=== PATIENT | male | born 1980 | race Caucasian/White ===

== ENCOUNTER 2016-07-28 13:44 | Emergency (ER) | payer SELFPAY ==
[~2016-07-28] VITALS: Ht 185.4 cm; Wt 54.5 kg
[~2016-07-28 13:44] MED LIST: BACT800T5 PO; CLIN1CAP5 PO
[2016-07-28 13:49] VITALS: BP 123/65; PULSE 57; RESP 19; TEMP 97.7; O2SAT 99
[2016-07-28] MEDS ORDERED: ONDANSETRON ODT 4 MG TAB PO ONE (14:15)
--- NOTE | 2016-07-28 14:16 | PD ---
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 He states he last used 2 days ago. He states he was at the detox facility and was unable keep anything down so was sent to the emergency department further treatment and evaluation. Patient states he's had approximate 6 episodes of vomiting today. Denies any blood in the vomit and reports nonbilious. Denies any diarrhea, chest pain, shortness breath, abdominal pain, or fevers. Patient states she does have generalized pain all over. PFSH Past Medical History Anxiety: Yes Depression: Yes Diminished Hearing: No Social History Alcohol Use: Yes (states occ) Tobacco Use: Yes (1 ppd) Substance Use: Yes (IV methadone) Allergies-Medications (Allergen,Severity, Reaction): Coded Allergies: Doxepin (Verified Allergy, Severe, ANAPHALAXIS, 11/25/14) Reported Meds & Prescriptions Reported Meds & Active Scripts Active Phenergan Supp (Promethazine HCl) 12.5 Mg Supp 12.5 Mg RECTAL Q6H PRN Zofran Odt (Ondansetron Odt) 4 Mg Tab 4 Mg SL Q6HR PRN Review of Systems Except as stated in HPI: all other systems reviewed are Neg Physical Exam Narrative GENERAL: Well-developed, under nourished, in no acute distress, and non-ill appearing. Patient has a bucket of emesis at the side of his bed with no blood noted. SKIN: Focused skin assessment warm and dry. HEAD: Atraumatic. Normocephalic. EYES: Pupils equal and round. EOMI. No scleral icterus. No injection or drainage. ENT: No nasal bleeding or discharge. Mucous membranes pink and moist. NECK: Trachea midline. No JVD. Supple. No nuclear rigidity. CARDIOVASCULAR: Regular rate and rhythm. No murmur appreciated. RESPIRATORY: No accessory muscle use. No respiratory distress. Clear to auscultation. Breath sounds equal bilaterally. GASTROINTESTINAL: Abdomen soft, non-tender, nondistended. Hepatic and splenic margins not palpable. Normal bowel sounds 4. No pulsatile mass. MUSCULOSKELETAL: No obvious deformities. No clubbing. No cyanosis. No edema. Full range of motion. NEUROLOGICAL: Awake and alert. No obvious cranial nerve deficits. Motor grossly within normal limits. Normal speech. PSYCHIATRIC: Appropriate mood and affect; insight and judgment normal. Data Data Last Documented VS Vital Signs Date Time Temp Pulse Resp B/P Pulse Ox O2 Delivery O2 Flow Rate FiO2 07/28/16 16:25 97 07/28/16 13:49 97.7 57 19 123/65 Orders Ondansetron Odt (Zofran Odt) (07/28/16 14:15) Vascular Access Team Consult/P PRN (07/28/16 15:16) Complete Blood Count With Diff (07/28/16 15:15) Comprehensive Metabolic Panel (07/28/16 15:15) Lipase (07/28/16 15:15) Iv Access Insert/Monitor (07/28/16 15:15) Ecg Monitoring (07/28/16 15:15) Oximetry (07/28/16 15:15) Sodium Chlor 0.9% 1000 Ml Inj (Ns 1000 M (07/28/16 15:15) Sodium Chloride 0.9% Flush (Ns Flush) (07/28/16 15:15) Chest, Single Ap (07/28/16 15:15) Pantoprazole Inj (Protonix Inj) (07/28/16 15:15) Metoclopramide Inj (Reglan Inj) (07/28/16 15:15) Vascular Poc Ultrasound (07/28/16 ) Labs Laboratory Tests Test 07/28/16 07/28/16 15:43 17:11 White Blood Count 9.5 TH/MM3 Red Blood Count 4.28 MIL/MM3 Hemoglobin 13.0 GM/DL Hematocrit 38.3 % Mean Corpuscular Volume 89.5 FL Mean Corpuscular Hemoglobin 30.5 PG Mean Corpuscular Hemoglobin 34.1 % Concent Red Cell Distribution Width 13.3 % Platelet Count 260 TH/MM3 Mean Platelet Volume 7.9 FL Neutrophils (%) (Auto) 88.0 % Lymphocytes (%) (Auto) 8.8 % Monocytes (%) (Auto) 3.1 % Eosinophils (%) (Auto) 0.0 % Basophils (%) (Auto) 0.1 % Neutrophils # (Auto) 8.3 TH/MM3 Lymphocytes # (Auto) 0.8 TH/MM3 Monocytes # (Auto) 0.3 TH/MM3 Eosinophils # (Auto) 0.0 TH/MM3 Basophils # (Auto) 0.0 TH/MM3 CBC Comment DIFF FINAL Differential Comment Sodium Level 138 MEQ/L Potassium Level 4.4 MEQ/L Chloride Level 106 MEQ/L Carbon Dioxide Level 22.6 MEQ/L Anion Gap 9 MEQ/L Blood Urea Nitrogen 14 MG/DL Creatinine 0.80 MG/DL Estimat Glomerular Filtration 109 ML/MIN Rate Random Glucose 105 MG/DL Calcium Level 9.3 MG/DL Total Bilirubin 0.4 MG/DL Aspartate Amino Transf 31 U/L (AST/SGOT) Alanine Aminotransferase 39 U/L (ALT/SGPT) Alkaline Phosphatase 64 U/L Total Protein 8.0 GM/DL Albumin 3.5 GM/DL Lipase 71 U/L [facility] Medical Decision Making Medical Screen Exam Complete: Yes Emergency Medical Condition: Yes Interpretation(s) Chest x-ray read by radiologist shows: Negative for acute process. Differential Diagnosis Methadone withdrawal, nausea, vomiting, gastritis, electrolyte abnormality, pancreatitis, other Narrative Course 1630 patient reassessed in bed in no acute distress. Reports feeling better. We'll by mouth challenge patient, await CMP, and likely discharge home with Zofran prescription. 1940 patient feeling better and wanting to go back to detox center. I spoke with lab who reports the recollected CMP should be done within 15 minutes. Patient looks great, non-ill appearing. The patient is tolerating fluids and is well hydrated. I suspect opioid withdrawal versus possible gastritis by history and exam. The abdominal exam is unremarkable without defined focal tenderness. The patient appeared comfortable, well hydrated and the abdominal exam was unremarkable and minimal to nontender to me. Laboratory and radiographic evaluation revealed no significant abnormality. There was no evidence of an acute, surgical abdomen at this time.There are normal active bowel sounds without any masses, distension, or significant tenderness. There was no clinical evidence to support cholecystitis/cholelithiasis, pancreatitis, perforation of gastric ulcer, colitis, diverticulitis, peritonitis, obstruction , volvulus, early appendicitis, or hernial incarceration or strangulation at this time. There was no evidence to support vascular pathology such as AAA, mesenteric ischemia. There was also no clinical evidence by history, exam or risk factors to suggest atypical presentation of cardiac disease such as ACS, AMI or atypical angina. No evidence to suggest genitourinary etiology as well. During the course of the ED visit, the patient noted improvement. Clinical picture was discussed with the patient, as well as plan of care. The patient was instructed to follow up with their physician. Abdominal pain warnings were discussed with the patient. The patient is to return if worsens, pain worsens or changes, develop fever, inability to tolerate fluids with or without vomiting , increased vomiting, blood in vomit, unable to establish follow up or as needed. The patient agrees with plan. The patient was tolerating fluids at time of discharge. Patient in no obvious distress upon re-evaluation. All pertinent laboratory/ Radiology result(s) discussed with patient. Patient was asked if they wanted to speak to my attending, which the patient did not wish to do at this time. Any questions/concerns in reference to patient diagnosis/condition discussed and clarified prior to patient's discharge. Reinforced sheer importance of close follow up with patient's primary physician or primary care clinic. Instructed patient to return to ED immediately, if symptoms return/worsen. Pt showed understanding of above instructions. Further instructions and recommendations were detailed in discharge paperwork. Pt ambulated without difficulty out of ED at discharge and was taken back to the detox center. Diagnosis Primary Impression: Nausea & vomiting Qualified Code: R11.2 - Non-intractable vomiting with nausea, unspecified vomiting type Patient Instructions: Acute Nausea and Vomiting (ED), General Instructions Additional Instructions: Follow-up with your primary care physician in 2-3 days for reevaluation. Take all medication as prescribed. Drink plenty of non-caffeinated and nonalcoholic fluids. Return to the emergency department if symptoms get worse. Med/Other Pt SpecificInfo: Prescription(s) given Scripts Promethazine Supp (Phenergan Supp)12.5 Mg Supp12.5 Mg RECTAL Q6H PRN (NAUSEA OR VOMITING) #7 SUPP Ref 0 Prov:Macho Sanchez MD 07/28/16 Ondansetron Odt (Zofran Odt)4 Mg Tab4 Mg SL Q6HR PRN (Nausea/Vomiting) #12 TAB Ref 0 Prov:Macho Sanchez MD 07/28/16 Disposition: 01 DISCHARGE HOME (back to detox facility) Condition: Stable Josse Urban July 28, 2016 14:16
[2016-07-28] MEDS ORDERED: PANTOPRAZOLE SODIUM 40 MG VIAL IVP ONE (15:15)
[2016-07-28] MEDS ORDERED: METOCLOPRAMIDE HCL 10 MG/2 ML VIAL IV PUSH ONE (15:15)
[2016-07-28] MEDS ORDERED: SODIUM CHLOR 0.9% 1000 ML INJ 1,000 ML IV SCH (15:15)
[2016-07-28] MEDS ORDERED: SODIUM CHLORIDE 0.9% FLUSH 10 ML FLUSH IV FLUSH PRN (15:15)
--- NOTE | 2016-07-28 15:45 | RADRPT ---
EXAM DATE/TIME: 07/28/2016 15:32 [facility] COMPARISON: No previous studies available for comparison. INDICATIONS : Shortness of breath. MEDICAL HISTORY : None. SURGICAL HISTORY : None. ENCOUNTER: Initial ACUITY: 1 day PAIN SCORE: 0/10 LOCATION: Bilateral chest FINDINGS: A single view of the chest demonstrates the lungs to be symmetrically aerated without evidence of mas s, infiltrate or effusion. Nipple shadow is present in the left base. The cardiomediastinal contour s are unremarkable. Osseous structures are intact. CONCLUSION: Negative for acute process. Jermain Sheets MD FACR on July 28, 2016 at 15:42 Board Certified Radiologist. This report was verified electronically.
[2016-07-28 15:50] LABS: AUTOMATED NEUTROPHIL # 8.3 TH/MM3 (1.8-7.7); BASOPHIL % 0.1 % (0.0-2.0); HEMATOCRIT 38.3 % (39.0-51.0); HEMO FLAGS DIFF FINAL; LYMPH % 8.8 % (9.0-44.0); LYMPHOCYTE # 0.8 TH/MM3 (1.0-4.8); MEAN CELL VOLUME 89.5 FL (80.0-100.0); MEAN CORPUSCULAR HEMOGLOBIN 30.5 PG (27.0-34.0); MEAN CORPUSCULAR HGB CONC 34.1 % (32.0-36.0); MONO % 3.1 % (0.0-8.0); PLATELET COUNT 260 TH/MM3 (150-450); RED BLOOD COUNT 4.28 MIL/MM3 (4.50-5.90); RED CELL DISTRIBUTION WIDTH 13.3 % (11.6-17.2); WHITE BLOOD COUNT 9.5 TH/MM3 (4.0-11.0)
[2016-07-28 16:25] VITALS: O2SAT 97
[2016-07-28] MEDS ORDERED: ZOFR4TAB3 SL (17:46)
[2016-07-28] MEDS ORDERED: PROM2SUP RECTAL (17:46)
[2016-07-28 17:50] LABS: ALT (GPT) 39 U/L (12-78); ANION GAP 9 MEQ/L (5-15); AST (GOT) 31 U/L (15-37); BICARBONATE 22.6 MEQ/L (21.0-32.0); BLOOD UREA NITROGEN 14 MG/DL (7-18); CHLORIDE 106 MEQ/L (98-107); GLOMERULAR FILTRATION RATE 109 ML/MIN (>89); POTASSIUM 4.4 MEQ/L (3.5-5.1); SODIUM (NA) 138 MEQ/L (136-145)
[2016-07-28 17:52] LABS: ALKALINE PHOSPHATASE 64 U/L (45-117); TOTAL BILIRUBIN ADULT 0.4 MG/DL (0.2-1.0)
== END 2016-07-28 18:15 | disposition home or self-care (01) ==
LOC: NEPE 13:44
DX: R11.2 Nausea with vomiting, unspecified (principal); F11.23 Opioid dependence with withdrawal; F41.8 Other specified anxiety disorders
CPT/HCPCS: 71010; 80053; 83690; 85025; 96374; 96375; 99284; C9113; J2765; J7030

== ENCOUNTER 2017-03-18 15:09 | Emergency (ER) | payer SELFPAY ==
[~2017-03-18] VITALS: Ht 185.4 cm; Wt 59.1 kg
[~2017-03-18 15:09] MED LIST changes: -BACT800T5 PO; -CLIN1CAP5 PO; +PROM2SUP RECTAL; +ZOFR4TAB3 SL
[2017-03-18 15:21] VITALS: BP 104/62; PULSE 98; RESP 13; TEMP 99.1; O2SAT 94; O2SAT 96
[2017-03-18 16:03] LABS: BILIRUBIN, URINE NEG (NEG); BLOOD, URINE NEG (NEG); GLUCOSE,URINE NEG (NEG); KETONE, URINE TRACE mg/dL (NEG); NITRITE,URINE NEG (NEG); URINE COLOR YELLOW (YELLW/STRAW); URINE LEUKOCYTE ESTERASE NEG (NEG)
[2017-03-18] MEDS ORDERED: BUPR8SUB SL (16:53)
[2017-03-18] MEDS ORDERED: ONDANSETRON HCL 4 MG/2 ML VIAL IV PUSH ONE (17:30)
[2017-03-18] MEDS ORDERED: KETOROLAC TROMETHAMINE 30 MG/ML (IVP) VIAL IV PUSH ONE (17:30)
[2017-03-18] MEDS ORDERED: SODIUM CHLOR 0.9% 1000 ML INJ 1,000 ML IV ONE (17:30)
--- NOTE | 2017-03-18 17:54 | RADRPT ---
EXAM DATE/TIME: 03/18/2017 17:40 [facility] COMPARISON: No previous studies available for comparison. INDICATIONS : Dysuria, bilateral flank pain. ORAL CONTRAST: No oral contrast ingested. RADIATION DOSE: 4.53 CTDIvol (mGy) MEDICAL HISTORY : None SURGICAL HISTORY : None. ENCOUNTER: Initial ACUITY: 1 day PAIN SCALE: 10/10 LOCATION: Bilateral flank TECHNIQUE: Volumetric scanning of the abdomen and pelvis was performed. Using automated exposure control and adjustment of the mA and/or kV according to patient size, radiation dose was kept as low as reasonably achievable to obtain optimal diagnostic quality images. DICOM format image data is av ailable electronically for review and comparison. FINDINGS: CT Abdomen: The liver, spleen, pancreas, right kidney, adrenals are unremarkable. Approximate [address] one is present in the left kidney. There is no evidence for any stone in the ureters on either side a nd no significant hydronephrosis is identified.There is no evidence for any appreciable pathological adenopathy, free fluid, or bowel obstruction. Focal consolidation and inflammatory nodularity is lakisha ntified in the left lower lobe. CT pelvis: There is no evidence for mass, abscess formation, or any significant adenopathy within the pelvis. There is a tiny 4-5 mm bone island in the right ischium. There is chronic spondylolysis bila terally L5. CONCLUSION: 1. Left lower lobe pneumonia. 2. Nonobstructing left renal stone. 3. Chronic spondylolysis bilaterally L5. KBrenna Cid MD on March 18, 2017 at 17:48 Board Certified Radiologist. This report was verified electronically.
[2017-03-18 17:57] LABS: ALBUMIN 4.2 GM/DL (3.4-5.0); ALT (GPT) 43 U/L (12-78); AST (GOT) 30 U/L (15-37); BICARBONATE 23.3 MEQ/L (21.0-32.0); BLOOD UREA NITROGEN 12 MG/DL (7-18); CALCIUM 8.8 MG/DL (8.5-10.1); CHLORIDE 102 MEQ/L (98-107); CREATININE 0.87 MG/DL (0.60-1.30); GLOMERULAR FILTRATION RATE 98 ML/MIN (>89); GLUCOSE,RANDOM 86 MG/DL (74-106); SODIUM (NA) 134 MEQ/L (136-145)
[2017-03-18 18:00] LABS: ALKALINE PHOSPHATASE 67 U/L (45-117); TOTAL BILIRUBIN ADULT 0.5 MG/DL (0.2-1.0); TOTAL PROTEIN 8.6 GM/DL (6.4-8.2)
[2017-03-18] MEDS ORDERED: KETOROLAC TROMETHAMINE 60 MG/2 ML (IM) VIAL IM ONE (18:00)
[2017-03-18] MEDS ORDERED: ONDANSETRON ODT 4 MG TAB PO ONE (18:00)
[2017-03-18 18:24] LABS: AUTOMATED NEUTROPHIL # 7.5 TH/MM3 (1.8-7.7); BASOPHIL % 0.2 % (0.0-2.0); HEMATOCRIT 40.3 % (39.0-51.0); HEMOGLOBIN 14.7 GM/DL (13.0-17.0); LYMPH % 14.2 % (9.0-44.0); LYMPHOCYTE # 1.4 TH/MM3 (1.0-4.8); MEAN CELL VOLUME 86.6 FL (80.0-100.0); MEAN CORPUSCULAR HEMOGLOBIN 31.5 PG (27.0-34.0); MEAN PLATELET VOLUME 8.1 FL (7.0-11.0); MONO % 8.5 % (0.0-8.0); MONOCYTE # 0.8 TH/MM3 (0-0.9); NEUT % 77.1 % (16.0-70.0); PLATELET COUNT 222 TH/MM3 (150-450); RED BLOOD COUNT 4.65 MIL/MM3 (4.50-5.90); RED CELL DISTRIBUTION WIDTH 13.9 % (11.6-17.2); WHITE BLOOD COUNT 9.8 TH/MM3 (4.0-11.0)
[2017-03-18 18:26] LABS: MEAN CORPUSCULAR HGB CONC 36.4 % (32.0-36.0)
--- NOTE | 2017-03-18 18:50 | RADRPT ---
EXAM DATE/TIME: 03/18/2017 18:40 [facility] COMPARISON: No previous studies available for comparison. INDICATIONS : Fever. Possible infection. MEDICAL HISTORY : None. SURGICAL HISTORY : None. ENCOUNTER: Initial ACUITY: 1 day PAIN SCORE: 0/10 LOCATION: Bilateral chest FINDINGS: PA and lateral views of the chest demonstrate the lungs to be symmetrically aerated without evidence of mass, infiltrate or effusion. The cardiomediastinal contours are unremarkable. Osseous structure s are intact. CONCLUSION: No acute disease. Thomas Delong MD on March 18, 2017 at 18:48 Board Certified Radiologist. This report was verified electronically.
[2017-03-18] MEDS ORDERED: ZITHTAB PO (19:05)
--- NOTE | 2017-03-18 19:05 | PD ---
HPI Chief Complaint: Flank/Kidney Pain Time Seen by Provider: 17:05 Travel History International Travel<30 days: No Contact w/Intl Traveler<30days: No Traveled to known affect area: No History of Present Illness HPI Patient is a 37 year old male who comes in complaining of flank pain, fevers, cough, nausea. He says he has had issues with urination for several months, and is concerned he has a urinary infection. The flank pain and fevers started a few days ago. He says his fever has been as high as 103 and he has been taking Tylenol and Ibuprofen to control the fever/pain. He denies any penile discharge. 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 He denies any chest pain or skin infections. [facility] Past Medical History Anxiety: Yes Depression: Yes Diminished Hearing: No Tetanus Vaccination: Unknown Influenza Vaccination: No Social History Alcohol Use: Yes (states occ) Tobacco Use: Yes (1 ppd) Substance Use: No (IV methadone) Allergies-Medications (Allergen,Severity, Reaction): Coded Allergies: doxepin (Unverified Allergy, Severe, ANAPHALAXIS, 03/18/17) Reported Meds & Prescriptions Reported Meds & Active Scripts Active Phenergan Supp (Promethazine HCl) 12.5 Mg Supp 12.5 Mg RECTAL Q6H PRN Zofran Odt (Ondansetron Odt) 4 Mg Tab 4 Mg SL Q6HR PRN Reported Buprenorphine (Buprenorphine HCl) 8 Mg Subl 16 Mg SL BID Review of Systems Except as stated in HPI: all other systems reviewed are Neg General / Constitutional: Positive: Fever Eyes: No: Blurred Vision HENT: No: Headaches, Lightheadedness Cardiovascular: No: Chest Pain or Discomfort Respiratory: Positive: Cough, No: Shortness of Breath Gastrointestinal: Positive: Nausea, Vomiting Genitourinary: Positive: Dysuria, Flank Pain Musculoskeletal: No: Myalgias Skin: No Rash, No Change in Pigmentation Neurologic: No: Weakness, Dizziness Physical Exam Narrative GENERAL: Awake and alert, in no acute distress. SKIN: Focused skin assessment warm/dry. HEAD: Atraumatic. Normocephalic. EYES: Pupils equal and round. No scleral icterus. ENT: Mucous membranes pink and moist. NECK: Trachea midline. No JVD. CARDIOVASCULAR: Regular rate and rhythm. No murmur appreciated. RESPIRATORY: No accessory muscle use. Clear to auscultation. Breath sounds equal bilaterally. GASTROINTESTINAL: Abdomen soft, non-tender, nondistended. Minimal left CVA tenderness. MUSCULOSKELETAL: No obvious deformities. No clubbing. No cyanosis. No edema. NEUROLOGICAL: Awake and alert. No obvious cranial nerve deficits. Motor grossly within normal limits. Normal speech. PSYCHIATRIC: Appropriate mood and affect; insight and judgment normal. Data Data Last Documented VS Vital Signs Date Time Temp Pulse Resp B/P (MAP) Pulse Ox O2 Delivery O2 Flow Rate FiO2 03/18/17 16:48 17 03/18/17 15:21 99.1 98 104/62 (76) 96 Orders Orders Complete Blood Count With Diff (03/18/17 15:19) Comprehensive Metabolic Panel (03/18/17 15:19) Urinalysis - C+S If Indicated (03/18/17 15:19) Ct Abd/Pel W/O Iv Contrast (03/18/17 ) Iv Access Insert/Monitor (03/18/17 17:22) Sodium Chlor 0.9% 1000 Ml Inj (Ns 1000 M (03/18/17 17:30) Ketorolac Inj (Toradol Inj) (03/18/17 17:30) Ondansetron Inj (Zofran Inj) (03/18/17 17:30) Gc And Chlamydia Pcr (03/18/17 17:22) Ketorolac Inj (Toradol Inj) (03/18/17 18:00) Ondansetron Odt (Zofran Odt) (03/18/17 18:00) Chest, Pa & Lat (03/18/17 ) Labs Laboratory Tests Test 03/18/17 15:46 03/18/17 17:30 03/18/17 18:15 Urine Color YELLOW Urine Turbidity CLEAR Urine pH 7.0 Urine Specific [place] 1.022 Urine Protein TRACE mg/dL Urine Glucose (UA) NEG mg/dL Urine Ketones TRACE mg/dL Urine Occult Blood NEG Urine Nitrite NEG Urine Bilirubin NEG Urine Urobilinogen LESS THAN 2.0 MG/DL Urine Leukocyte Esterase NEG Urine WBC LESS THAN 1 /hpf Microscopic Urinalysis Comment CULT NOT INDICATED Blood Urea Nitrogen 12 MG/DL Creatinine 0.87 MG/DL Random Glucose 86 MG/DL Total Protein 8.6 GM/DL Albumin 4.2 GM/DL Calcium Level 8.8 MG/DL Alkaline Phosphatase 67 U/L Aspartate Amino Transf (AST/SGOT) 30 U/L Alanine Aminotransferase (ALT/SGPT) 43 U/L Total Bilirubin 0.5 MG/DL Sodium Level 134 MEQ/L Potassium Level 3.5 MEQ/L Chloride Level 102 MEQ/L Carbon Dioxide Level 23.3 MEQ/L Anion Gap 9 MEQ/L Estimat Glomerular Filtration Rate 98 ML/MIN White Blood Count 9.8 TH/MM3 Red Blood Count 4.65 MIL/MM3 Hemoglobin 14.7 GM/DL Hematocrit 40.3 % Mean Corpuscular Volume 86.6 FL Mean Corpuscular Hemoglobin 31.5 PG Mean Corpuscular Hemoglobin Concent 36.4 % Red Cell Distribution Width 13.9 % Platelet Count 222 TH/MM3 Mean Platelet Volume 8.1 FL Neutrophils (%) (Auto) 77.1 % Lymphocytes (%) (Auto) 14.2 % Monocytes (%) (Auto) 8.5 % Eosinophils (%) (Auto) 0.0 % Basophils (%) (Auto) 0.2 % Neutrophils # (Auto) 7.5 TH/MM3 Lymphocytes # (Auto) 1.4 TH/MM3 Monocytes # (Auto) 0.8 TH/MM3 Eosinophils # (Auto) 0.0 TH/MM3 Basophils # (Auto) 0.0 TH/MM3 CBC Comment AUTO DIFF MDM Medical Decision Making Medical Screen Exam Complete: Yes Emergency Medical Condition: Yes Medical Record Reviewed: Yes Differential Diagnosis UTI versus pyelonephritis versus renal stone versus pneumonia versus influenza Narrative Course Patient is a 37-year-old male comes in complaining of fever and flank pain. Difficulty urinating. Exam shows minimal left CVA tenderness. IV established, labs sent. Labs show normal creatinine. CT abdomen and pelvis performed shows a nonobstructing renal stone as well as a left lower lobe pneumonia. Patient was discharged with prescription for azithromycin. He is advised follow-up with her primary doctor. Advised to return to the ED as needed for any worsening symptoms. Diagnosis Primary Impression: Pneumonia Qualified Codes: J18.1 - Lobar pneumonia, unspecified organism Referrals: [facility] call for appointment Additional Instructions: Follow up with a primary care physician. Take all of your antibiotic. Take Tylenol or Ibuprofen as needed for pain/fever. Return to the ED as needed for any worsening symptoms. Scripts Azithromycin (Zithromax Z-Zaki) 250 Mg Dspk 250 MG PO DIRECTED for Infection, #1 DSPK 0 Refills 500 MG (2 tabs) day 1, then 1 tab days 2-5. Prov: Vanessa Oliveira MD 03/18/17 Disposition: 01 DISCHARGE HOME Condition: Stable Vanessa Oliveira MD Mar 18, 2017 19:05
== END 2017-03-18 19:30 | disposition home or self-care (01) ==
LOC: NEPD 15:09
DX: J18.1 Lobar pneumonia, unspecified organism (principal); F17.200 Nicotine dependence, unspecified, uncomplicated
CPT/HCPCS: 71046; 74176; 80053; 81001; 85025; 87491; 87591; 96372; 99285; J1885; J7030

== ENCOUNTER 2017-07-26 12:27 | Emergency (ER) | payer OTHER ==
[~2017-07-26] VITALS: Ht 185.4 cm; Wt 51.0 kg
[~2017-07-26 12:27] MED LIST changes: +BUPR8SUB SL; +ZITHTAB PO
[2017-07-26 12:37] VITALS: BP 115/74; PULSE 83; RESP 16; TEMP 98.4; O2SAT 100
[2017-07-26] MEDS ORDERED: SODIUM CHLORIDE 0.9% FLUSH 10 ML FLUSH IV FLUSH PRN (13:00)
[2017-07-26] MEDS ORDERED: ONDANSETRON ODT 4 MG TAB PO ONE (13:00)
--- NOTE | 2017-07-26 13:00 | PD ---
HPI Chief Complaint: Psychiatric Symptoms Time Seen by Provider: 12:45 Travel History International Travel<30 days: No Contact w/Intl Traveler<30days: No Traveled to known affect area: No History of Present Illness HPI 37-year-old male brought in under the Ayers act with suicidal ideation. Patient states he was recently released from halfway and has lost his will to live. He reports history of IV drug use and hepatitis C. It has not been treated. Patient has not had any drug use since leaving halfway 2 days ago. He walked from [facility] to here overnight last night. He states history of decreased appetite and weight loss over the past several months. He states recently he has not been able to keep anything down, not even water for the past several weeks. He states bilateral flank pain, and decreased urine output. He denies fever or chills. He denies dysuria. He denies diarrhea. No cough, chest pain or shortness of breath is noted. Patient is allergic to doxepin. PFSH Past Medical History Anxiety: Yes Depression: Yes Diminished Hearing: No Social History Alcohol Use: Yes (states occ) Tobacco Use: Yes (1 ppd) Substance Use: No (IV methadone) Allergies-Medications (Allergen,Severity, Reaction): Coded Allergies: doxepin (Unverified Allergy, Severe, ANAPHALAXIS, 03/18/17) Reported Meds & Prescriptions Reported Meds & Active Scripts Active Reported Trazodone (Trazodone HCl) 100 Mg Tablet 100 Mg PO HS Review of Systems Except as stated in HPI: all other systems reviewed are Neg General / Constitutional: Positive: Weight Loss, No: Fever, Chills Eyes: No: Visual changes HENT: No: Headaches, Vertigo, Lightheadedness, Sore Throat, Rhinitis, Rhinorrhea, Congestion, Nosebleed, Neck Stiffness, Dental Difficulties, Earache Cardiovascular: No: Chest Pain or Discomfort Respiratory: No: Cough, Shortness of Breath, Wheezing Gastrointestinal: Positive: Nausea, Vomiting, No: Diarrhea, Abdominal Pain Genitourinary: Positive: Decreased Urinary Output, Flank Pain, No: Urgency, Frequency, Dysuria Musculoskeletal: No: Myalgias, Arthralgias, Limited ROM, Pain Skin: No Rash Neurologic: Positive: Seizures (History of 4 seizures in the past, but not diagnosed with seizure disorder.), No: Weakness Psychiatric: Positive: Anxiety, Depression, Suicidal Ideations, Substance Abuse , No: Homicidal Ideation Endocrine: No: Polydipsia Hematologic/Lymphatic: No: Easy Bruising Physical Exam Narrative GENERAL: Patient appears somewhat cachectic and withdrawn. SKIN: Warm and dry. Normal color. Normal turgor. No rash. HEAD: Atraumatic. Normocephalic. EYES: Pupils equal and round. No scleral icterus. No injection or drainage. ENT: No nasal bleeding or discharge. Mucous membranes pink and moist. Pharynx is clear. Airways patent NECK: Trachea midline. Supple and nontender. CARDIOVASCULAR: Regular rate and rhythm. Patient is not tachycardic. No murmurs gallops or rubs appreciated. RESPIRATORY: No accessory muscle use. Clear to auscultation. Breath sounds equal bilaterally. GASTROINTESTINAL: Abdomen soft, non-tender, nondistended. Hepatic and splenic margins not palpable. MUSCULOSKELETAL: Extremities without clubbing, cyanosis, or edema. No obvious deformities. NEUROLOGICAL: Awake and alert. No obvious cranial nerve deficits. Motor grossly within normal limits. Five out of 5 muscle strength in the arms and legs. Normal speech. PSYCHIATRIC: Appropriate mood and affect; insight and judgment normal. Data Data Last Documented VS Vital Signs Date Time Temp Pulse Resp B/P (MAP) Pulse Ox O2 Delivery O2 Flow Rate FiO2 07/27/17 06:37 98.2 60 18 101/60 (74) 97 Room Air Orders Orders Complete Blood Count With Diff (07/26/17 12:52) Comprehensive Metabolic Panel (07/26/17 12:52) Lipase (07/26/17 12:52) Lactic Acid (07/26/17 12:52) Prothrombin Time / Inr (Pt) (07/26/17 12:52) Act Partial Throm Time (Ptt) (07/26/17 12:52) Urinalysis - C+S If Indicated (07/26/17 12:52) Iv Access Insert/Monitor (07/26/17 12:52) Ecg Monitoring (07/26/17 12:52) Oximetry (07/26/17 12:52) Sodium Chlor 0.9% 1000 Ml Inj (Ns 1000 M (07/26/17 12:52) Sodium Chloride 0.9% Flush (Ns Flush) (07/26/17 13:00) Electrocardiogram (07/26/17 12:52) Magnesium (Mg) (07/26/17 12:52) Ondansetron Odt (Zofran Odt) (07/26/17 13:00) Vascular Poc Ultrasound (07/26/17 ) Vascular Access Team Consult/P PRN (07/26/17 13:19) Diet Regular Basic (07/26/17 Dinner) Psych Screen (07/26/17 19:29) Drug Screen, Random Urine (07/26/17 19:33) Trazodone (Desyrel) (07/26/17 22:45) Diet Regular Basic (07/27/17 Breakfast) Labs Laboratory Tests Test 07/26/17 13:35 07/26/17 16:09 07/27/17 05:42 White Blood Count 10.2 TH/MM3 Red Blood Count 4.28 MIL/MM3 Hemoglobin 12.9 GM/DL Hematocrit 37.5 % Mean Corpuscular Volume 87.5 FL Mean Corpuscular Hemoglobin 30.0 PG Mean Corpuscular Hemoglobin Concent 34.3 % Red Cell Distribution Width 13.4 % Platelet Count 234 TH/MM3 Mean Platelet Volume 7.9 FL Neutrophils (%) (Auto) 82.2 % Lymphocytes (%) (Auto) 10.4 % Monocytes (%) (Auto) 7.0 % Eosinophils (%) (Auto) 0.2 % Basophils (%) (Auto) 0.2 % Neutrophils # (Auto) 8.4 TH/MM3 Lymphocytes # (Auto) 1.1 TH/MM3 Monocytes # (Auto) 0.7 TH/MM3 Eosinophils # (Auto) 0.0 TH/MM3 Basophils # (Auto) 0.0 TH/MM3 CBC Comment DIFF FINAL Differential Comment Prothrombin Time 10.9 SEC Prothromb Time International Ratio 1.1 RATIO Activated Partial Thromboplast Time 25.8 SEC Blood Urea Nitrogen 12 MG/DL Creatinine 0.96 MG/DL Random Glucose 89 MG/DL Total Protein 7.8 GM/DL Albumin 3.9 GM/DL Calcium Level 8.8 MG/DL Magnesium Level 2.0 MG/DL Alkaline Phosphatase 67 U/L Aspartate Amino Transf (AST/SGOT) 22 U/L Alanine Aminotransferase (ALT/SGPT) 35 U/L Total Bilirubin 0.5 MG/DL Sodium Level 140 MEQ/L Potassium Level 3.8 MEQ/L Chloride Level 105 MEQ/L Carbon Dioxide Level 29.9 MEQ/L Anion Gap 5 MEQ/L Estimat Glomerular Filtration Rate 88 ML/MIN Lipase 160 U/L Urine Color YELLOW Urine Turbidity CLEAR Urine pH 6.5 Urine Specific [place] 1.019 Urine Protein TRACE mg/dL Urine Glucose (UA) NEG mg/dL Urine Ketones NEG mg/dL Urine Occult Blood NEG Urine Nitrite NEG Urine Bilirubin NEG Urine Urobilinogen LESS THAN 2.0 MG/DL Urine Leukocyte Esterase NEG Urine RBC 1 /hpf Urine WBC 2 /hpf Urine Calcium Oxalate Crystals FEW /hpf Urine Mucus MANY /lpf Microscopic Urinalysis Comment CULT NOT INDICATED Urine Opiates Screen NEG Urine Barbiturates Screen NEG Urine Amphetamines Screen NEG Urine Benzodiazepines Screen NEG Urine Cocaine Screen NEG Urine Cannabinoids Screen POS Lactic Acid Level 1.1 mmol/L MDM Medical Decision Making Medical Screen Exam Complete: Yes Emergency Medical Condition: Yes Differential Diagnosis Ayers act. Suicidal ideation. History of IV drug use. History of hepatitis C. Weight loss. Nausea, vomiting, decreased urine output. Possible renal disease. Narrative Course Patient is moved to a medical bed for medical evaluation prior to being psychiatrically evaluated. IV access is obtained. Labs ordered including CBC, CMP, lactic acid, lipase, urinalysis, and magnesium. Chest x-ray and EKG are ordered. Patient is given 2 L normal saline bolus. Patient is given 4 mg Zofran ODT p.o. CBC is unremarkable except for hemoglobin of 12.9, hematocrit of 37.5. Coagulation studies are normal. CMP is normal. Urinalysis is unremarkable as well. Patient is medically cleared for psychiatric evaluation. Psych screen is ordered. Condition: Stable Cristobal Perez July 26, 2017 13:00
[2017-07-26] MEDS ORDERED: TRAZ100T10 PO (13:14)
[2017-07-26 14:03] LABS: AUTOMATED NEUTROPHIL # 8.4 TH/MM3 (1.8-7.7); BASOPHIL % 0.2 % (0.0-2.0); EOSINOPHIL % 0.2 % (0.0-4.0); HEMATOCRIT 37.5 % (39.0-51.0); HEMOGLOBIN 12.9 GM/DL (13.0-17.0); LYMPH % 10.4 % (9.0-44.0); LYMPHOCYTE # 1.1 TH/MM3 (1.0-4.8); MEAN CELL VOLUME 87.5 FL (80.0-100.0); MEAN CORPUSCULAR HGB CONC 34.3 % (32.0-36.0); MEAN PLATELET VOLUME 7.9 FL (7.0-11.0); MONOCYTE # 0.7 TH/MM3 (0-0.9); NEUT % 82.2 % (16.0-70.0); PLATELET COUNT 234 TH/MM3 (150-450); RED BLOOD COUNT 4.28 MIL/MM3 (4.50-5.90); RED CELL DISTRIBUTION WIDTH 13.4 % (11.6-17.2); WHITE BLOOD COUNT 10.2 TH/MM3 (4.0-11.0)
[2017-07-26] MEDS: SODIUM CHLOR 0.9% 1000 ML INJ 1,000 ML IV SCH ×2 (14:06→15:13)
[2017-07-26 14:12] LABS: INTERNATIONAL NORMALIZED RATIO 1.1 RATIO; PROTHROMBIN TIME - PATIENT 10.9 SEC (9.8-11.6)
[2017-07-26 14:25] LABS: ALBUMIN 3.9 GM/DL (3.4-5.0); AST (GOT) 22 U/L (15-37); BICARBONATE 29.9 MEQ/L (21.0-32.0); BLOOD UREA NITROGEN 12 MG/DL (7-18); CALCIUM 8.8 MG/DL (8.5-10.1); CHLORIDE 105 MEQ/L (98-107); CREATININE 0.96 MG/DL (0.60-1.30); GLOMERULAR FILTRATION RATE 88 ML/MIN (>89); GLUCOSE,RANDOM 89 MG/DL (74-106); SODIUM (NA) 140 MEQ/L (136-145)
[2017-07-26 14:26] LABS: ALT (GPT) 35 U/L (12-78)
[2017-07-26 14:28] LABS: ALKALINE PHOSPHATASE 67 U/L (45-117); TOTAL BILIRUBIN ADULT 0.5 MG/DL (0.2-1.0); TOTAL PROTEIN 7.8 GM/DL (6.4-8.2)
--- NOTE | 2017-07-26 14:40 | PD ---
Physical Exam Date Seen by Provider: July 26, 2017 Narrative This patient was brought in as a Ayers Act because of suicidal ideation. Data Data Last Documented VS Vital Signs Date Time Temp Pulse Resp B/P (MAP) Pulse Ox O2 Delivery O2 Flow Rate FiO2 07/26/17 12:37 98.4 83 16 115/74 (88) 100 Orders Orders Complete Blood Count With Diff (07/26/17 12:52) Comprehensive Metabolic Panel (07/26/17 12:52) Lipase (07/26/17 12:52) Lactic Acid (07/26/17 12:52) Prothrombin Time / Inr (Pt) (07/26/17 12:52) Act Partial Throm Time (Ptt) (07/26/17 12:52) Urinalysis - C+S If Indicated (07/26/17 12:52) Iv Access Insert/Monitor (07/26/17 12:52) Ecg Monitoring (07/26/17 12:52) Oximetry (07/26/17 12:52) Sodium Chlor 0.9% 1000 Ml Inj (Ns 1000 M (07/26/17 12:52) Sodium Chloride 0.9% Flush (Ns Flush) (07/26/17 13:00) Electrocardiogram (07/26/17 12:52) Magnesium (Mg) (07/26/17 12:52) Ondansetron Odt (Zofran Odt) (07/26/17 13:00) Vascular Poc Ultrasound (07/26/17 ) Vascular Access Team Consult/P PRN (07/26/17 13:19) Labs Laboratory Tests Test 07/26/17 13:35 White Blood Count 10.2 TH/MM3 Red Blood Count 4.28 MIL/MM3 Hemoglobin 12.9 GM/DL Hematocrit 37.5 % Mean Corpuscular Volume 87.5 FL Mean Corpuscular Hemoglobin 30.0 PG Mean Corpuscular Hemoglobin Concent 34.3 % Red Cell Distribution Width 13.4 % Platelet Count 234 TH/MM3 Mean Platelet Volume 7.9 FL Neutrophils (%) (Auto) 82.2 % Lymphocytes (%) (Auto) 10.4 % Monocytes (%) (Auto) 7.0 % Eosinophils (%) (Auto) 0.2 % Basophils (%) (Auto) 0.2 % Neutrophils # (Auto) 8.4 TH/MM3 Lymphocytes # (Auto) 1.1 TH/MM3 Monocytes # (Auto) 0.7 TH/MM3 Eosinophils # (Auto) 0.0 TH/MM3 Basophils # (Auto) 0.0 TH/MM3 CBC Comment DIFF FINAL Differential Comment Prothrombin Time 10.9 SEC Prothromb Time International Ratio 1.1 RATIO Activated Partial Thromboplast Time 25.8 SEC Blood Urea Nitrogen 12 MG/DL Creatinine 0.96 MG/DL Random Glucose 89 MG/DL Total Protein 7.8 GM/DL Albumin 3.9 GM/DL Calcium Level 8.8 MG/DL Magnesium Level 2.0 MG/DL Alkaline Phosphatase 67 U/L Aspartate Amino Transf (AST/SGOT) 22 U/L Alanine Aminotransferase (ALT/SGPT) 35 U/L Total Bilirubin 0.5 MG/DL Sodium Level 140 MEQ/L Potassium Level 3.8 MEQ/L Chloride Level 105 MEQ/L Carbon Dioxide Level 29.9 MEQ/L Anion Gap 5 MEQ/L Estimat Glomerular Filtration Rate 88 ML/MIN Lipase 160 U/L MDM Supervised Visit with TONYA: Yes Interpretation(s) EKG shows a sinus rhythm. His Ts are peaked in the anterior leads but not diffusely. Narrative Course I, Dr. Keyes, have reviewed the advance practice practitioner's documentation and am in agreement, met with the patient face to face, made the diagnosis, and the medical decision making was done by me. *My assessment and Findings: This patient is here for psychiatric evaluation. Medical clearance is in process. Please see Danial Perez PA-C's note for results of laboratory and radiographic evaluation, ED course, final diagnosis and disposition Rebecca Keyes MD July 26, 2017 14:40
[2017-07-26 16:51] LABS: BILIRUBIN, URINE NEG (NEG); BLOOD, URINE NEG (NEG); CALCIUM OXALATE CRYSTALS,URINE FEW /hpf; GLUCOSE,URINE NEG (NEG); KETONE, URINE NEG (NEG); MUCUS URINE MANY /lpf (OCC); NITRITE,URINE NEG (NEG); PH, URINE 6.5 (5.0-8.5); URINE COLOR YELLOW (YELLW/STRAW); URINE LEUKOCYTE ESTERASE NEG (NEG)
--- NOTE | 2017-07-26 18:02 | EKG ---
Date Performed: 07/26/2017 Time Performed: 13:07:39 PTAGE: 37 years EKG: Sinus rhythm WITH SHORT NH INTERVAL BORDERLINE RIGHT AXIS DEVIATION INCOMPLETE RIGHT BUNDLE BRANCH BLOCK BORDERLI NE ECG PREVIOUS TRACING : 01/25/2012 19.06 Since the previous tracing, no significant change noted DOCTOR: Julien Sim Interpretating Date/Time 07/26/2017 18:00:53
[2017-07-26 19:00] VITALS: BP 112/78; PULSE 99; RESP 18; TEMP 97.4; O2SAT 96
[2017-07-26] MEDS ORDERED: traZODone HCL 100 MG TAB PO ONE (22:45)
[2017-07-26 23:12] VITALS: BP 96/53; PULSE 58; RESP 18; TEMP 98; O2SAT 99
[2017-07-27 02:29] VITALS: BP 104/55; PULSE 60; RESP 18; TEMP 98.9; O2SAT 98
[2017-07-27 06:37] VITALS: BP 101/60; PULSE 60; RESP 18; TEMP 98.2; O2SAT 97
--- NOTE | 2017-07-27 11:55 | PD ---
History of Present Illness Chief Complaint: Psychiatric Symptoms Time Seen by Provider: 11:10 Travel History International Travel<30 Days: No Contact w/Intl Traveler<30days: No Known affected area: No Legal Status Legal Status: Ayers Act Ayers Act Signed By: Kelechi Alcantar History of Present Illness: Patient is a 37-year-old male who presents under a Ayers act from [employer]. Ayers act states, " Jam Osullivan is made statements to his sister and to long enforcement that he is having suicidal thoughts along with his destructive thoughts . Jam osullivan has recently been released from skilled nursing and is not currently on his meds." Patient states that he has been in skilled nursing in both [facility] and [facility] due to not paying child support on two separate children. His two year old son is now in the custody of his sister. He states that he has been an IV drug user and was on the Suboxone program. He states that he has a long history of depression and anxiety. He has been on Prozac, Effexor, Celexa and Cymbalta. The only medication that seems to help is Cymbalta. He states that he also has a history of Hep C. UDS today is positive for cannabis. Collateral : I spoke with his sister Swathi Jain at [phone]. She states that she has custody of his son and he is not allowed in her home per the custody papers. She states that he is homeless and looking for housing. She states that his food stamp card should come in the mail this week. She is trying to help him and thought that the Ayers Act would help he receive services. Chart reviewed and case discussed with ESTELLA Fisher. Patient is in Room J 108 in a hospital gown. He is slender and well kept. He is alert and oriented x 4. Motor and gait are steady. Fund of knowledge is good. Insight and concentration is good. He states , " I live for my kids, I am upset about my son and I want to be able to see him. " His judgement is fair as he is unable to articulate if he is at a place to stop using illicit drugs. He denies any use since his release from skilled nursing. No abnormal thought processes. Has good recall of recent and remote events. He endorses no suicidal ideations. Patient expresses that he is upset with his sister for notifying the police and placing him under a Ayers Act. He relocated to [place] from [place]. He is familiar with the MAT program and [facility]mon. He states that this time he wants to work on his mental health only. He has had counseling services in the past through [facility] and thinks that may help. Based on assessment and patient's willingness to see Trip Neymar for ongoing treatment of his depression and anxiety, I will lift the Ayers Act. Patient is at low risk for self harm or harming others. He states that he feels sad , but would not hurt himself. Dx: Depression and Anxiety; History of IV Drug Use; Hepatitis C PFSH Past Medical History Anxiety: Yes Depression: Yes Diminished Hearing: No ?: Not Psychiatric History Psychiatric History Patient has been under the care of [facility] for medications, IV drug use and counseling. Patient has been in skilled nursing ( [facility]). Patient is willing to re-establish services for follow up care. Hx Psychiatric Treatment: Patient with a reported hx of depression and anxiety. History of Inpatient Treatment: Yes Social History Hx Alcohol Use: Yes (states occ) Hx Tobacco Use: Yes (1 ppd) Hx Substance Use: Yes (marijuana) Substance Use Type: Marijuana Other Substances Used: past opiate abuse, was on Subutex Hx of Substance Use Treatment: Yes Allergies-Medications (Allergen,Severity, Reaction): Coded Allergies: doxepin (Unverified Allergy, Severe, ANAPHALAXIS, 03/18/17) Reported Meds & Prescriptions Reported Meds & Active Scripts Active Reported Trazodone (Trazodone HCl) 100 Mg Tablet 100 Mg PO HS Mental Status Examination Appearance: Appropriate (slender ) Consciousness: Alert Orientation: x4 Motor Activity: Normal gait Speech: Unremarkable Language: Adequate Fund of Knowledge: Adequate Attention and Concentration: Adequate Memory: Unremarkable Mood: Anxious Affect: Flat Thought Process & Associations: Intact Thought Content: Appropriate Hallucination Type: None Delusion Type: None Suicidal Ideation: No Suicidal Plan: No Suicidal Intention: No Homicidal Ideation: No Homicidal Plan: No Homicidal Intention: No Insight: Adequate Judgment: Adequate MDM Medical Decision Making Medical Record Reviewed: Yes Assessment/Plan Patient is a 37 y/o male who is here today due to anxiety and depression. He was released from skilled nursing and his sister has custody of his two year old son. Patient states that he was anxious yesterday and she called the police to have him placed under a Ayers Act for care. Patient has been under the care of [facility] in the past for his IV drug use and mental health concerns. He has also had counseling services through [facility]. Patient is willing to follow up with [facility] in the morning. Patient is at low risk for self harm or harm of others. He states that " he lives for his kids." Will lift the Ayers Act and provide follow up information regarding the services at [facility]. Orders Orders Complete Blood Count With Diff (07/26/17 12:52) Comprehensive Metabolic Panel (07/26/17 12:52) Lipase (07/26/17 12:52) Lactic Acid (07/26/17 12:52) Prothrombin Time / Inr (Pt) (07/26/17 12:52) Act Partial Throm Time (Ptt) (07/26/17 12:52) Urinalysis - C+S If Indicated (07/26/17 12:52) Iv Access Insert/Monitor (07/26/17 12:52) Ecg Monitoring (07/26/17 12:52) Oximetry (07/26/17 12:52) Sodium Chlor 0.9% 1000 Ml Inj (Ns 1000 M (07/26/17 12:52) Sodium Chloride 0.9% Flush (Ns Flush) (07/26/17 13:00) Electrocardiogram (07/26/17 12:52) Magnesium (Mg) (07/26/17 12:52) Ondansetron Odt (Zofran Odt) (07/26/17 13:00) Vascular Poc Ultrasound (07/26/17 ) Vascular Access Team Consult/P PRN (07/26/17 13:19) Diet Regular Basic (07/26/17 Dinner) Psych Screen (07/26/17 19:29) Drug Screen, Random Urine (07/26/17 19:33) Trazodone (Desyrel) (07/26/17 22:45) Diet Regular Basic (07/27/17 Breakfast) Diet Regular Basic (07/27/17 Lunch) Results Vital Signs Date Time Temp Pulse Resp B/P (MAP) Pulse Ox O2 Delivery O2 Flow Rate FiO2 07/27/17 06:37 98.2 60 18 101/60 (74) 97 Room Air 07/27/17 02:29 98.9 60 18 104/55 (71) 98 Room Air 07/26/17 23:12 98.0 58 18 96/53 (67) 99 Room Air 07/26/17 19:00 97.4 99 18 112/78 (89) 96 Room Air 07/26/17 12:37 98.4 83 16 115/74 (88) 100 Laboratory Tests Test 07/26/17 13:35 07/26/17 16:09 07/27/17 05:42 White Blood Count 10.2 Red Blood Count 4.28 Hemoglobin 12.9 Hematocrit 37.5 Mean Corpuscular Volume 87.5 Mean Corpuscular Hemoglobin 30.0 Mean Corpuscular Hemoglobin Concent 34.3 Red Cell Distribution Width 13.4 Platelet Count 234 Mean Platelet Volume 7.9 Neutrophils (%) (Auto) 82.2 Lymphocytes (%) (Auto) 10.4 Monocytes (%) (Auto) 7.0 Eosinophils (%) (Auto) 0.2 Basophils (%) (Auto) 0.2 Neutrophils # (Auto) 8.4 Lymphocytes # (Auto) 1.1 Monocytes # (Auto) 0.7 Eosinophils # (Auto) 0.0 Basophils # (Auto) 0.0 CBC Comment DIFF FINAL Differential Comment Prothrombin Time 10.9 Prothromb Time International Ratio 1.1 Activated Partial Thromboplast Time 25.8 Blood Urea Nitrogen 12 Creatinine 0.96 Random Glucose 89 Total Protein 7.8 Albumin 3.9 Calcium Level 8.8 Magnesium Level 2.0 Alkaline Phosphatase 67 Aspartate Amino Transf (AST/SGOT) 22 Alanine Aminotransferase (ALT/SGPT) 35 Total Bilirubin 0.5 Sodium Level 140 Potassium Level 3.8 Chloride Level 105 Carbon Dioxide Level 29.9 Anion Gap 5 Estimat Glomerular Filtration Rate 88 Lipase 160 Urine Color YELLOW Urine Turbidity CLEAR Urine pH 6.5 Urine Specific [place] 1.019 Urine Protein TRACE Urine Glucose (UA) NEG Urine Ketones NEG Urine Occult Blood NEG Urine Nitrite NEG Urine Bilirubin NEG Urine Urobilinogen LESS THAN 2.0 Urine Leukocyte Esterase NEG Urine RBC 1 Urine WBC 2 Urine Calcium Oxalate Crystals FEW Urine Mucus MANY Microscopic Urinalysis Comment CULT NOT INDICATED Urine Opiates Screen NEG Urine Barbiturates Screen NEG Urine Amphetamines Screen NEG Urine Benzodiazepines Screen NEG Urine Cocaine Screen NEG Urine Cannabinoids Screen POS Lactic Acid Level 1.1 Diagnosis Primary Impression: Depression with anxiety Additional Impressions: History of intravenous drug abuse Hepatitis C Disposition: 01 DISCHARGE HOME Condition: Stable Problem Qualifiers Glenda Telles July 27, 2017 11:55
--- NOTE | 2017-07-27 12:05 | PD ---
Physical Exam Date Seen by Provider: July 27, 2017 Time Seen by Provider: 12:03 Narrative 37-year-old male with history of hep C and IV drug use, was previously Ayers acted with suicidal ideation, and medically cleared for psychiatric evaluation. Patient has been seen by psychiatric staff and deemed psychiatrically stable for discharge at this time. Patient remains medically stable for discharge follow-up will be based on psychiatric note. Data Data Last Documented VS Vital Signs Date Time Temp Pulse Resp B/P (MAP) Pulse Ox O2 Delivery O2 Flow Rate FiO2 07/27/17 06:37 98.2 60 18 101/60 (74) 97 Room Air Orders Orders Complete Blood Count With Diff (07/26/17 12:52) Comprehensive Metabolic Panel (07/26/17 12:52) Lipase (07/26/17 12:52) Lactic Acid (07/26/17 12:52) Prothrombin Time / Inr (Pt) (07/26/17 12:52) Act Partial Throm Time (Ptt) (07/26/17 12:52) Urinalysis - C+S If Indicated (07/26/17 12:52) Iv Access Insert/Monitor (07/26/17 12:52) Ecg Monitoring (07/26/17 12:52) Oximetry (07/26/17 12:52) Sodium Chlor 0.9% 1000 Ml Inj (Ns 1000 M (07/26/17 12:52) Sodium Chloride 0.9% Flush (Ns Flush) (07/26/17 13:00) Electrocardiogram (07/26/17 12:52) Magnesium (Mg) (07/26/17 12:52) Ondansetron Odt (Zofran Odt) (07/26/17 13:00) Vascular Poc Ultrasound (07/26/17 ) Vascular Access Team Consult/P PRN (07/26/17 13:19) Diet Regular Basic (07/26/17 Dinner) Psych Screen (07/26/17 19:29) Drug Screen, Random Urine (07/26/17 19:33) Trazodone (Desyrel) (07/26/17 22:45) Diet Regular Basic (07/27/17 Breakfast) Diet Regular Basic (07/27/17 Lunch) Labs Laboratory Tests Test 07/26/17 13:35 07/26/17 16:07/27/17 05:42 White Blood Count 10.2 TH/MM3 Red Blood Count 4.28 MIL/MM3 Hemoglobin 12.9 GM/DL Hematocrit 37.5 % Mean Corpuscular Volume 87.5 FL Mean Corpuscular Hemoglobin 30.0 PG Mean Corpuscular Hemoglobin Concent 34.3 % Red Cell Distribution Width 13.4 % Platelet Count 234 TH/MM3 Mean Platelet Volume 7.9 FL Neutrophils (%) (Auto) 82.2 % Lymphocytes (%) (Auto) 10.4 % Monocytes (%) (Auto) 7.0 % Eosinophils (%) (Auto) 0.2 % Basophils (%) (Auto) 0.2 % Neutrophils # (Auto) 8.4 TH/MM3 Lymphocytes # (Auto) 1.1 TH/MM3 Monocytes # (Auto) 0.7 TH/MM3 Eosinophils # (Auto) 0.0 TH/MM3 Basophils # (Auto) 0.0 TH/MM3 CBC Comment DIFF FINAL Differential Comment Prothrombin Time 10.9 SEC Prothromb Time International Ratio 1.1 RATIO Activated Partial Thromboplast Time 25.8 SEC Blood Urea Nitrogen 12 MG/DL Creatinine 0.96 MG/DL Random Glucose 89 MG/DL Total Protein 7.8 GM/DL Albumin 3.9 GM/DL Calcium Level 8.8 MG/DL Magnesium Level 2.0 MG/DL Alkaline Phosphatase 67 U/L Aspartate Amino Transf (AST/SGOT) 22 U/L Alanine Aminotransferase (ALT/SGPT) 35 U/L Total Bilirubin 0.5 MG/DL Sodium Level 140 MEQ/L Potassium Level 3.8 MEQ/L Chloride Level 105 MEQ/L Carbon Dioxide Level 29.9 MEQ/L Anion Gap 5 MEQ/L Estimat Glomerular Filtration Rate 88 ML/MIN Lipase 160 U/L Urine Color YELLOW Urine Turbidity CLEAR Urine pH 6.5 Urine Specific [place] 1.019 Urine Protein TRACE mg/dL Urine Glucose (UA) NEG mg/dL Urine Ketones NEG mg/dL Urine Occult Blood NEG Urine Nitrite NEG Urine Bilirubin NEG Urine Urobilinogen LESS THAN 2.0 MG/DL Urine Leukocyte Esterase NEG Urine RBC 1 /hpf Urine WBC 2 /hpf Urine Calcium Oxalate Crystals FEW /hpf Urine Mucus MANY /lpf Microscopic Urinalysis Comment CULT NOT INDICATED Urine Opiates Screen NEG Urine Barbiturates Screen NEG Urine Amphetamines Screen NEG Urine Benzodiazepines Screen NEG Urine Cocaine Screen NEG Urine Cannabinoids Screen POS Lactic Acid Level 1.1 mmol/L MDM Medical Record Reviewed: Yes Supervised Visit with TONYA: Yes Differential Diagnosis 37-year-old male with history of hep C and IV drug use, was previously Ayers acted with suicidal ideation, and medically cleared for psychiatric evaluation. Patient has been seen by psychiatric staff and deemed psychiatrically stable for discharge at this time. Patient remains medically stable for discharge follow-up will be based on psychiatric note. Diagnosis Primary Impression: Depression with anxiety Additional Impressions: History of intravenous drug abuse Hepatitis C Qualified Codes: B18.2 - Chronic viral hepatitis C Patient Instructions: General Instructions Disposition: DISCHARGE HOME Condition: Stable Cristobal Perez July 27, 2017 12:05
--- NOTE | 2017-07-27 15:18 | PD ---
History of Present Illness Chief Complaint: Psychiatric Symptoms Time Seen by Provider: 14:55 Travel History International Travel<30 Days: No Contact w/Intl Traveler<30days: No Known affected area: No Legal Status Legal Status: Ayers Act Ayers Act Signed By: Kelechi Alcantar History of Present Illness: I received a call from Swathi Jain , who is the sister of this patient. She was screaming at me and would not let me speak. She stated that her brother was at her door telling her that "he had nothing to live for." She wanted my full name which I attempted to give her through her yelling. I told her if she felt he was at risk to call 911. In reviewing my records from the visit from today, I noted that the patient is familiar with the MAT program and [facility] and he has been on Suboxone in that past. I recall telling the patient that [facility] 8 am tomorrow morning. He is homeless and stated that he sister would could not take him in because she has custody of his son. He repeatedly stated, " you have to admit me I have no place to stay and I am not living in the [facility]." He was also very angry because his sister placed him under a Ayers Act. The nursing staff provided information on resources for the patient. The patient has his own cell phone. I called the "911" dispatcher. I gave the dispatcher the address of [address] [place] [address] where Jam is currently located. [facility] Past Medical History Anxiety: Yes Depression: Yes Diminished Hearing: No ?: Not Psychiatric History Psychiatric History Hx Psychiatric Treatment: Patient with a reported hx of depression and anxiety. History of Inpatient Treatment: Yes Social History Hx Alcohol Use: Yes (states occ) Hx Tobacco Use: Yes (1 ppd) Hx Substance Use: Yes (marijuana) Substance Use Type: Marijuana Other Substances Used: past opiate abuse, was on Subutex Hx of Substance Use Treatment: Yes Allergies-Medications (Allergen,Severity, Reaction): Coded Allergies: doxepin (Unverified Allergy, Severe, ANAPHALAXIS, 03/18/17) Reported Meds & Prescriptions Reported Meds & Active Scripts Active Reported Trazodone (Trazodone HCl) 100 Mg Tablet 100 Mg PO HS Mental Status Examination Appearance: Appropriate (slender ) Consciousness: Alert Orientation: x4 Motor Activity: Normal gait Speech: Unremarkable Language: Adequate Fund of Knowledge: Adequate Attention and Concentration: Adequate Memory: Unremarkable Mood: Anxious Affect: Flat Thought Process & Associations: Intact Thought Content: Appropriate Hallucination Type: None Delusion Type: None Suicidal Ideation: No Suicidal Plan: No Suicidal Intention: No Homicidal Ideation: No Homicidal Plan: No Homicidal Intention: No Insight: Adequate Judgment: Adequate MDM Medical Decision Making Assessment/Plan I called 911 and gave them Jam's location per request of the sister. Orders Orders Diet Regular Basic (07/26/17 Dinner) Psych Screen (07/26/17 19:29) Drug Screen, Random Urine (07/26/17 19:33) Trazodone (Desyrel) (07/26/17 22:45) Diet Regular Basic (07/27/17 Breakfast) Ed Discharge Order (07/27/17 12:05) Results Vital Signs Date Time Temp Pulse Resp B/P (MAP) Pulse Ox O2 Delivery O2 Flow Rate FiO2 07/27/17 12:43 07/27/17 06:37 98.2 60 18 101/60 (74) 97 Room Air 07/27/17 02:29 98.9 60 18 104/55 (71) 98 Room Air 07/26/17 23:12 98.0 58 18 96/53 (67) 99 Room Air 07/26/17 19:00 97.4 99 18 112/78 (89) 96 Room Air Laboratory Tests Test 07/26/17 16:09 07/27/17 05:42 Urine Color YELLOW Urine Turbidity CLEAR Urine pH 6.5 Urine Specific [place] 1.019 Urine Protein TRACE Urine Glucose (UA) NEG Urine Ketones NEG Urine Occult Blood NEG Urine Nitrite NEG Urine Bilirubin NEG Urine Urobilinogen LESS THAN 2.0 Urine Leukocyte Esterase NEG Urine RBC 1 Urine WBC 2 Urine Calcium Oxalate Crystals FEW Urine Mucus MANY Microscopic Urinalysis Comment CULT NOT INDICATED Urine Opiates Screen NEG Urine Barbiturates Screen NEG Urine Amphetamines Screen NEG Urine Benzodiazepines Screen NEG Urine Cocaine Screen NEG Urine Cannabinoids Screen POS Lactic Acid Level 1.1 Diagnosis Primary Impression: Depression with anxiety Additional Impressions: History of intravenous drug abuse Hepatitis C Departure Forms: Tests/Procedures Patient Instructions: General Instructions, Hepatitis C (ED), Anxiety (ED) Disposition: 01 DISCHARGE HOME Condition: Stable Problem Qualifiers Glenda Telles July 27, 2017 15:18
== END 2017-07-27 12:52 | disposition home or self-care (01) ==
LOC: NEPC 12:27 → NEPJ 07-27 12:52
DX: F41.8 Other specified anxiety disorders (principal); R94.31 Abnormal electrocardiogram [ECG] [EKG]; B18.2 Chronic viral hepatitis C; F17.210 Nicotine dependence, cigarettes, uncomplicated; F12.90 Cannabis use, unspecified, uncomplicated; F11.10 Opioid abuse, uncomplicated; Z59.0 Homelessness
CPT/HCPCS: 80053; 80307; 81001; 83605; 83690; 83735; 85025; 85610; 85730; 93005; 96360; 96361; 99284; J7030

== ENCOUNTER 2017-09-03 19:18 | Emergency (ER) | payer SELFPAY ==
[~2017-09-03] VITALS: Ht 185.4 cm; Wt 56.5 kg
[~2017-09-03 19:18] MED LIST changes: -BUPR8SUB SL; -PROM2SUP RECTAL; +TRAZ100T10 PO; -ZITHTAB PO; -ZOFR4TAB3 SL
[2017-09-03 19:45] VITALS: BP 135/78; PULSE 101; RESP 14; TEMP 100; O2SAT 99
--- NOTE | 2017-09-03 21:30 | PD ---
HPI . pt has swelling to right scalp for 3 days getting worse , not taking antibiotics it hurts pressure burning and ear raise right sided no fever no discharge from ear no cut or break in the skin , Chief Complaint: Skin Problem Time Seen by Provider: 21:17 Travel History International Travel<30 days: No Contact w/Intl Traveler<30days: No Traveled to known affect area: No History of Present Illness HPI pt has right sided scalp eruption subQ papule abscess 3 cm round no break in the skin . pt has tenderness localized to the area and ear swelling and tenderness around ear right no drainage no fever ni known cause of skin infection subQ. denies trauma no diabetes , no insect bite PFSH Past Medical History Anxiety: Yes Depression: Yes Diminished Hearing: No Tetanus Vaccination: < 5 Years Social History Alcohol Use: No Tobacco Use: Yes (2 packs per week) Substance Use: Yes (Pills "pain killers", marijuana) Allergies-Medications (Allergen,Severity, Reaction): Coded Allergies: doxepin (Verified Allergy, Severe, ANAPHALAXIS, 09/03/17) Reported Meds & Prescriptions Reported Meds & Active Scripts Active Clindamycin (Clindamycin HCl) 300 Mg Cap 300 Mg PO TID Bactrim DS (Sulfamethoxazole-Trimethoprim) 800-160 Mg Tab 1 Tab PO BID Reported Trazodone (Trazodone HCl) 100 Mg Tablet 100 Mg PO HS Review of Systems Except as stated in HPI: all other systems reviewed are Neg Physical Exam Narrative GENERAL: SKIN: Warm and dry. HEAD: right sided scalp hematoma 3cm no papule, no skin break no eschar EYES: Pupils equal and round. No scleral icterus. No injection or drainage. ENT: No nasal bleeding or discharge. Mucous membranes pink and moist. external canal right normal slight posterior auricular lymph node slightly swollen NECK: Trachea midline. No JVD. CARDIOVASCULAR: Regular rate and rhythm. RESPIRATORY: No accessory muscle use. Clear to auscultation. Breath sounds equal bilaterally. GASTROINTESTINAL: Abdomen soft, non-tender, nondistended. Hepatic and splenic margins not palpable. MUSCULOSKELETAL: Extremities without clubbing, cyanosis, or edema. No obvious deformities. NEUROLOGICAL: Awake and alert. No obvious cranial nerve deficits. Motor grossly within normal limits. Five out of 5 muscle strength in the arms and legs. Normal speech. PSYCHIATRIC: Appropriate mood and affect; insight and judgment normal. Data Data Last Documented VS Vital Signs Date Time Temp Pulse Resp B/P (MAP) Pulse Ox O2 Delivery O2 Flow Rate FiO2 09/03/17 19:45 100.0 101 14 135/78 (97) 99 Orders Orders Sulfamet-Trimeth Ds 800-160 Mg (Bactrim (09/03/17 22:00) Clindamycin (Cleocin) (09/03/17 22:00) Ed Discharge Order (09/03/17 22:45) MDM Medical Decision Making Medical Screen Exam Complete: Yes Emergency Medical Condition: Yes Medical Record Reviewed: Yes Differential Diagnosis scalp abscess small vs FB or trauma Narrative Course clindamycin and bactrim PO and close follow up told to return if no improvement Diagnosis Primary Impression: Scalp abscess Patient Instructions: Abscess (ED), General Instructions Scripts Clindamycin (Clindamycin) 300 Mg Cap 300 MG PO TID for Infection, #30 CAP 0 Refills Prov: Ziggy Menendez MD 09/03/17 Sulfamethoxazole-Trimethoprim (Bactrim DS) 800-160 Mg Tab 1 TAB PO BID for Infection, #20 TAB 0 Refills Prov: Ziggy Menendez MD 09/03/17 Disposition: 01 DISCHARGE HOME Condition: Good Ziggy Mennedez MD Sep 03, 2017 21:30
[2017-09-03] MEDS ORDERED: SULFAMETHOXAZOLE-TRIMETHOPRIM DS 800-160 MG TAB PO ONE (22:00)
[2017-09-03] MEDS ORDERED: CLINDAMYCIN 150 MG CAP PO ONE (22:00)
[2017-09-03] MEDS ORDERED: CLIN300C5 PO (22:43)
[2017-09-03] MEDS ORDERED: BACT800T5 PO (22:43)
== END 2017-09-03 22:52 | disposition home or self-care (01) ==
LOC: NEPE 19:18
DX: L02.811 Cutaneous abscess of head [any part, except face] (principal); F41.9 Anxiety disorder, unspecified; F32.9 Major depressive disorder, single episode, unspecified; F17.200 Nicotine dependence, unspecified, uncomplicated; F12.90 Cannabis use, unspecified, uncomplicated
CPT/HCPCS: 99283